=== PATIENT | female | born 1960 | race Caucasian/White ===

== ENCOUNTER 2020-08-16 23:57 | Emergency (ER) | payer BC ==
[~2020-08-16] VITALS: Ht 162.6 cm; Wt 61.8 kg
[2020-08-17] MEDS ORDERED: NOXI1TAB PO (00:15)
[2020-08-17 00:30] LABS: BASO % 0.2 % (0.0-1.0); HEMATOCRIT 42.1 % (36.0-47.0); HEMOGLOBIN 13.6 g/dl (12.0-15.5); LYMPH # 2.3 10^3/uL (1.5-5.0); LYMPH % 12.9 % (24.0-44.0); MEAN CORPUSCULAR HEMOGLOBIN 29.4 pg (27.0-33.0); MEAN CORPUSCULAR HGB CONC 32.3 g/dl (32.0-36.5); MEAN CORPUSCULAR VOLUME 91.1 fl (80.0-96.0); MONO # 1.2 10^3/uL (0.0-0.8); MONO % 6.7 % (2.0-8.0); NEUTROPHILS # 14.5 10^3/uL (1.5-8.5); NEUTROPHILS % 79.7 % (36.0-66.0); PLATELET COUNT, AUTOMATED 243 10^3/uL (150-450); RED BLOOD COUNT 4.62 10^6/uL (4.00-5.40); WHITE BLOOD COUNT 18.1 10^3/uL (4.0-10.0)
[2020-08-17 00:37] LABS: ALBUMIN 3.9 GM/DL (3.2-5.2); ALT/SGPT 27 U/L (12-78); BILIRUBIN,DIRECT < 0.1 MG/DL (0.0-0.2); BILIRUBIN,TOTAL 0.2 MG/DL (0.2-1.0); BLOOD UREA NITROGEN 20 MG/DL (7-18); CALCIUM LEVEL 8.9 MG/DL (8.5-10.1); CARBON DIOXIDE LEVEL 28 MEQ/L (21-32); CHLORIDE LEVEL 107 MEQ/L (98-107); CREATININE FOR GFR 0.88 MG/DL (0.55-1.30); GLOMERULAR FILTRATION RATE > 60.0 (>51); GLUCOSE, FASTING 115 MG/DL (70-100); LIPASE 219 U/L (73-393); POTASSIUM SERUM 4.1 MEQ/L (3.5-5.1); SODIUM LEVEL 140 MEQ/L (136-145); TOTAL PROTEIN 6.7 GM/DL (6.4-8.2)
[2020-08-17 01:30] VITALS: BP 124/67
[2020-08-17] MEDS ORDERED: KETOROLAC 30 MG/ML 1ML VIAL IV ONE (01:30)
--- NOTE | 2020-08-17 01:51 | REPVR ---
PROCEDURE INFORMATION: Exam: XR Chest Exam date and time: 08/17/2020 1:05 AM Age: 59 years old Clinical indication: Other: Chest pain TECHNIQUE: Imaging protocol: XR of the chest Views: 1 view. COMPARISON: No relevant prior studies available. FINDINGS: Lungs: Unremarkable. No consolidation. Pleural spaces: Unremarkable. No pleural effusion. No pneumothorax. Heart/Mediastinum: Unremarkable. No cardiomegaly. Bones/joints: Unremarkable. IMPRESSION: No acute findings. Electronically signed by: Tairq Kiser On 08/17/2020 01:50:38 AM
--- NOTE | 2020-08-17 07:42 | ECGEPIP ---
[facility] - ED Test Date: 2020-08-17 Pat Name: SILVERIO ENRIQUEZ Department: Room: - Gender: Female Critical Care Nurse: ESTEBAN : 1960 Requested By: Mor Howell Order Number: [id number] Reading MD: Shania Rose Measurements Intervals [place] Rate: 100 P: 51 [place]: 124 QRS: 25 QRSD: 76 T: 61 QT: 328 QTc: 423 Interpretive Statements Normal sinus rhythm Possible Left atrial enlargement NSTTW abnormalities No prior Electronically Signed on 08-17-2020 7:41:56 EDT by Shania Rose
== END 2020-08-17 02:48 | disposition home or self-care (01) ==
LOC: M ED 23:57
DX: R07.9 Chest pain, unspecified (principal); Z88.0 Allergy status to penicillin
CPT/HCPCS: 71045; 80048; 80076; 83690; 84484; 85025; 85379; 93005; 93041; 94760; 96374; 99285; J1885